=== PATIENT | female | born 1945 | race Caucasian/White ===

== ENCOUNTER → 2016-08-19 | Outpatient (CLI) | payer MEDICARE, BC | END | disposition home or self-care (01) | LOC: PCVCCLINIC 14:34 | PROVIDERS: ATTEND Internal Medicine Cardiovascular Disease | DX: I25.10 Atherosclerotic heart disease of native coronary artery without angina pectoris (principal); I10 Essential (primary) hypertension; E78.00 Pure hypercholesterolemia, unspecified; E11.9 Type 2 diabetes mellitus without complications; Z95.1 Presence of aortocoronary bypass graft; Z88.8 Allergy status to other drugs, medicaments and biological substances; Z79.82 Long term (current) use of aspirin; Z79.899 Other long term (current) drug therapy; E78.5 Hyperlipidemia, unspecified | CPT/HCPCS: 93005; G0463 ==

== ENCOUNTER → 2017-01-06 | Outpatient (CLI) | payer BC | END | disposition home or self-care (01) | LOC: PCVCCLINIC 11:58 | PROVIDERS: ATTEND Internal Medicine Cardiovascular Disease | DX: I10 Essential (primary) hypertension (principal); Z79.82 Long term (current) use of aspirin; Z79.899 Other long term (current) drug therapy | CPT/HCPCS: 93005; G0463 ==

== ENCOUNTER → 2019-01-15 | Outpatient (CLI) | payer BC ==
--- NOTE | 2019-01-15 16:02 | PCVCIMAG ---
APPROVED REPORT Study performed: 01/15/2019 15:09:49 EXAM: Comprehensive 2D, Doppler, and color-flow Echocardiogram Patient Location: Echo lab Room #: 2Status: routine BSA: 1.78 HR: 70 bpmBP: 110/62 mmHg Rhythm: NSR Other Information Study Quality: Adequate Risk Factors: Cardiac Risk Factors: HTN, Hyperlipidemia Indications CAD Hypertension/HDD S/P CABG 2001, DE STENT 2011 2D Dimensions IVSd: 8.63 (7-11mm)LVOT Diam: 20.51 (18-24mm) LVDd: 51.46 mm PWd: 9.34 (7-11mm)Ascending Ao: 29.83 (22-36mm) LVDs: 38.95 (25-40mm) Left Atrium: 39.42 (27-40mm) Aortic Root: 26.55 mm LV Single Plane 4CH: 61.15 % LV Single Plane 2CH: 54.50 % Biplane EF: 55.8 % Volumes Left Atrial Volume (Systole) Single Plane 4CH: 38.05 mLSingle Plane 2CH: 34.43 mL Biplane LA Volume: 39.00 mLLA ESV Index: 22.00 mL/m2 Aortic Valve AoV Peak Dom.: 1.40 m/s AO Peak Gr.: 7.80 mmHgLVOT Max P.83 mmHg LVOT Max V: 0.98 m/s PATRIA Vmax: 2.31 cm2 Mitral Valve E/A Ratio: 0.7 MV Decel. Time: 260.47 ms MV E Max Dom.: 0.51 m/s MV A Dom.: 0.73 m/s IVRT: 83.04 ms TDI E/Lateral E': 12.75E/Medial E': 10.20 Medial E' Dom.: 0.05 m/s Lateral E' Dom.: 0.04 m/s Pulmonary Valve PV Peak Dom.: 0.76 m/sPV Peak Gr.: 2.28 mmHg Pulmonary Vein P Vein S: 0.51 m/sP Vein A: 0.32 m/s P Vein D: 0.31 m/sP Vein A Dur.: 90.0 msec P Vein S/D Ratio: 1.65 Tricuspid Valve TR Peak Dom.: 2.58 m/s TR Peak Gr.: 26.53 mmHg TV Vmax: 0.52 m/sPA Pressure: 34.00 mmHg Left Ventricle The left ventricle is normal size. Paradoxical septal motion consistent with post-operative state. There is normal left ventricular wall thickness. Left ventricular systolic function is normal. The left ventricular ejection fraction is within the normal range. LVEF is 55-60%. Grade I - abnormal relaxation pattern. Findings suggest the left atrial pressure is elevated. Right Ventricle The right ventricle is normal size. The right ventricular systolic function is normal. Atria The left atrium size is normal. The right atrium size is normal. Aortic Valve Aortic valve is trileaflet. No aortic regurgitation is present. There is no aortic valvular stenosis. Mitral Valve The mitral valve is normal in structure. There is no mitral valve regurgitation noted. No evidence of mitral valve stenosis. Tricuspid Valve The tricuspid valve is normal in structure. Mild tricuspid regurgitation with a PA pressure of 34 mmHg. Pulmonic Valve The pulmonary valve is normal in structure. Trace pulmonic regurgitation. Great Vessels The aortic root is normal in size. The ascending aorta is normal in size. Aortic arch is normal in caliber. IVC is normal in size and collapses >50% with inspiration. Pericardium There is no pericardial effusion. There is no pleural effusion. <Conclusion> The left ventricle is normal size. There is normal left ventricular wall thickness. Left ventricular systolic function is normal. Grade I - abnormal relaxation pattern. The right ventricle is normal size. The left atrium size is normal. Aortic valve is trileaflet. There is no mitral valve regurgitation noted. Mild tricuspid regurgitation with a PA pressure of 34 mmHg.
== END | disposition home or self-care (01) ==
LOC: PCVCIMAG 14:41
PROVIDERS: ATTEND Internal Medicine Cardiovascular Disease
DX: I07.1 Rheumatic tricuspid insufficiency (principal); I25.10 Atherosclerotic heart disease of native coronary artery without angina pectoris; I10 Essential (primary) hypertension; E78.00 Pure hypercholesterolemia, unspecified; R60.9 Edema, unspecified; Z95.1 Presence of aortocoronary bypass graft; Z79.82 Long term (current) use of aspirin; Z79.899 Other long term (current) drug therapy; Z88.8 Allergy status to other drugs, medicaments and biological substances
CPT/HCPCS: 93306